=== PATIENT | male | born 1980 | race African-American/Black ===

== ENCOUNTER 2022-04-08 18:21 | Inpatient (IN) | payer OTHER ==
[2022-04-08] MEDS ORDERED: levETIRAcetam 500 MG/5 ML VIAL ONE (18:41)
[2022-04-08] MEDS ORDERED: Morphine 4 MG/ML VIAL ONE (18:41)
[2022-04-08] MEDS ORDERED: Boostrix 0.5 ML (Tdap) VIAL ONE (18:41)
[2022-04-08] MEDS ORDERED: Ketorolac Tromethamine 30 MG/ML VIAL ONE (18:41)
[2022-04-08 18:45] LABS: #Monocytes 0.4 thou/uL (0.11-0.59); #Neutrophils 4.3 thou/uL (1.40-6.50); %Basophils 0.1 % (0.0-1.0); %Eosinophils 0.4 % (0.0-10.0); %Lymphocytes 17.2 % (21.0-51.0); %Monocytes 6.2 % (0.0-10.0); %Neutrophils 76.1 % (42.0-75.0); Hemoglobin 14.8 g/dL (14.0-18.0); Mean Corpuscular HGB CONC 34.1 g/dL (32.0-36.0); Mean Corpuscular Volume 93.8 fL (78.0-98.0); Mean Platelet Volume 6.7 fL (7.4-10.4); Platelet Count 220 thou/uL (130-400); RBC Distribution Width 11.7 % (11.5-14.5); Red Blood Cell (RBC) Count 4.64 mill/uL (4.70-6.10); White Blood Cell (WBC) Count 5.6 thou/uL (4.8-10.8)
[2022-04-08] MEDS ORDERED: Ampicillin/Sulbactam 3 GM in Sodium Chloride 0.9% 100 ML IVPB SCH (19:00)
[2022-04-08 19:06] LABS: ALT (SGPT) 26 U/L (8-55); AST (SGOT) 22 U/L (5-34); Albumin 4.2 g/dL (3.5-5.0); Alkaline Phosphatase 54 U/L (40-110); Anion Gap 13 mmol/L (10-20); BUN (Urea Nitrogen) 11 mg/dL (8.9-20.6); Bilirubin, Total 1.5 mg/dL (0.2-1.2); Calc. Creatinine Clearance 0 mL/min (70-130); Carbon Dioxide 22 mmol/L (22-29); Chloride 107 mmol/L (98-107); Globulin 3.1 g/dL (2.4-3.5); Glucose 119 mg/dL (70-105); Potassium 4.1 mmol/L (3.5-5.1); Protein, Total 7.3 g/dL (6.0-8.3); Sodium 138 mmol/L (136-145)
[2022-04-08] MEDS ORDERED: Ondansetron PF 4 MG/2 ML Vial IVP PRN (19:56)
[2022-04-08] MEDS ORDERED: Morphine 2 MG/ML VIAL SLOW IVP PRN (19:56)
[2022-04-08] MEDS ORDERED: Promethazine HCl 25 MG/ML VIAL IM PRN (19:56)
[2022-04-08] MEDS ORDERED: Dexamethasone 4 mg/ml Vial SLOW IVP SCH (20:00)
[2022-04-08] MEDS ORDERED: levETIRAcetam in NS 2,000 MG in Premix Bag 1 BAG IVPB SCH (20:15)
[2022-04-08 20:42] LABS: Hemoglobin A1c 5.2 % (4.0-6.0)
[2022-04-08 20:59] LABS: SARS-CoV-2 NAA Rapid Test Not Detected (NotDetected)
[2022-04-08] MEDS ORDERED: levETIRAcetam in NS 500 MG in Premix Bag 1 BAG IVPB SCH (21:00)
[2022-04-09] MEDS: Sodium Chloride 0.9% 1,000 ML IV SCH ×3 (00:07→11:08)
[2022-04-09] MEDS: levETIRAcetam 500 MG/5 ML VIAL SLOW IVP SCH ×2 (00:08→08:00)
[2022-04-09] MEDS: Acetaminophen W/ Codeine 5 ML UDCUP PO SCH ×8 (00:08→23:32)
[2022-04-09] MEDS: Famotidine 40 MG/4 ML VIAL SLOW IVP SCH ×3 (00:16→21:46)
[2022-04-09] MEDS: Acetaminophen 650 MG/20.3 ML UDCUP PO SCH ×5 (00:17→21:46)
[2022-04-09] MEDS: Dexamethasone 4 mg/ml Vial SLOW IVP SCH ×4 (00:18→23:25)
[2022-04-09 00:45] VITALS: BMI 32.5
[2022-04-09 04:30] LABS: PTT 26.8 sec (22.9-36.1); Prothrombin Time 13.1 sec (12.0-14.7)
[2022-04-09] MEDS: Ampicillin/Sulbactam 3 GM in Sodium Chloride 0.9% 100 ML IVPB SCH ×4 (05:17→22:49)
[2022-04-09] MEDS ORDERED: fentaNYL Citrate/PF 100 MCG/2 ML SYRINGE ONE ×2 (16:22→19:32)
[2022-04-09] MEDS ORDERED: Midazolam HCl 2 mg/2 ml Vial ONE (16:22)
[2022-04-09] MEDS ORDERED: AFRIN NASAL MIST 15 ML BOT ONE (16:39)
[2022-04-09] MEDS ORDERED: Dexamethasone 4 mg/ml Vial ONE (16:46)
[2022-04-09] MEDS ORDERED: Clindamycin/D5W 900 mg/50 ml Premix Bag ONE (16:46)
[2022-04-09] MEDS ORDERED: Rocuronium Bromide 10 MG/ML (10ML VIAL) ONE (17:05)
[2022-04-09] MEDS ORDERED: Lidocaine 1% PF 5 ML VIAL ONE (17:05)
[2022-04-09] MEDS ORDERED: Ondansetron PF 4 MG/2 ML Vial ONE (17:05)
[2022-04-09] MEDS ORDERED: PHENYLEPHRINE-NS 100 MCG/ML 10 ML SYRINGE ONE (17:05)
[2022-04-09] MEDS ORDERED: PROPOFOL 200 MG/20 ML VIAL ONE (17:05)
[2022-04-09] MEDS ORDERED: Lidocaine 1% w/Epinephrine 1:100K 20 ML VIAL ONE (17:36)
[2022-04-09] MEDS ORDERED: Bacitracin Zinc Ointment 30 gm TUBE ONE (19:50)
[2022-04-09] MEDS ORDERED: Ondansetron HCl/PF 4 MG/2 ML Vial IVP PRN (20:16)
[2022-04-09] MEDS ORDERED: Promethazine HCl 25 MG/ML VIAL IVPB PRN (20:16)
[2022-04-09] MEDS ORDERED: Promethazine HCl 25 MG/ML VIAL IM PRN (20:16)
[2022-04-09] MEDS ORDERED: Labetalol HCl 100 MG/20 ML VIAL ONE (20:16)
[2022-04-09] MEDS ORDERED: Hydrocodone-Acetamin 15 ML UDCUP PO PRN (20:44)
[2022-04-09] MEDS ORDERED: levETIRAcetam in NS 500 MG in Premix Bag 1 BAG IVPB SCH (21:00)
[2022-04-09] MEDS: D5 0.9% NS w/ 20 mEq KCl 1,000 ML IV SCH (21:36)
[2022-04-09] MEDS: Chlorhexidine Gluconate 15 ML UDCUP SSP SCH (21:37)
[2022-04-09] MEDS: hydrALAZINE 20 MG/ML VIAL SLOW IVP PRN (21:46)
[2022-04-09] MEDS ORDERED: Ibuprofen 100 MG/5 ML UDCUP PO SCH (23:59)
[2022-04-10] MEDS: Clindamycin/D5W 600 MG in Premix Bag 1 BAG IVPB SCH ×2 (00:09→04:55)
[2022-04-10] MEDS: Acetaminophen W/ Codeine 5 ML UDCUP PO SCH (01:44)
[2022-04-10] MEDS: Acetaminophen 650 MG/20.3 ML UDCUP PO SCH ×3 (04:55→17:35)
[2022-04-10] MEDS: Ampicillin/Sulbactam 3 GM in Sodium Chloride 0.9% 100 ML IVPB SCH (04:55)
[2022-04-10] MEDS: Dexamethasone 4 mg/ml Vial SLOW IVP SCH ×3 (04:55→17:35)
[2022-04-10 05:54] LABS: #Lymphocytes 0.6 thou/uL (1.20-3.40); #Monocytes 0.7 thou/uL (0.11-0.59); #Neutrophils 10.3 thou/uL (1.40-6.50); %Eosinophils 0.1 % (0.0-10.0); %Lymphocytes 5.2 % (21.0-51.0); %Monocytes 5.7 % (0.0-10.0); Hemoglobin 15.4 g/dL (14.0-18.0); Mean Corpuscular HGB CONC 33.6 g/dL (32.0-36.0); Mean Corpuscular Hemoglobin 31.8 pg (27.0-31.0); Mean Corpuscular Volume 94.6 fL (78.0-98.0); Mean Platelet Volume 7.3 fL (7.4-10.4); Platelet Count 257 thou/uL (130-400); RBC Distribution Width 12.2 % (11.5-14.5); Red Blood Cell (RBC) Count 4.84 mill/uL (4.70-6.10); White Blood Cell (WBC) Count 11.5 thou/uL (4.8-10.8)
[2022-04-10 06:36] LABS: Anion Gap 14 mmol/L (10-20); BUN (Urea Nitrogen) 11 mg/dL (8.9-20.6); Calc. Creatinine Clearance 174 mL/min (70-130); Calcium 9.2 mg/dL (7.8-10.44); Carbon Dioxide 22 mmol/L (22-29); Chloride 106 mmol/L (98-107); Glucose 132 mg/dL (70-105); Magnesium 1.9 mg/dL (1.6-2.6); Phosphorus 2.3 mg/dL (2.3-4.7); Sodium 138 mmol/L (136-145)
[2022-04-10] MEDS: Clindamycin 150 MG CAP PO SCH ×2 (08:51→14:32)
[2022-04-10] MEDS: levETIRAcetam 500 MG TAB PO SCH ×3 (08:51→20:37)
[2022-04-10] MEDS: Famotidine 20 MG TAB PO SCH ×2 (08:51→20:27)
[2022-04-10] MEDS: Chlorhexidine Gluconate 15 ML UDCUP SSP SCH ×3 (08:51→20:27)
[2022-04-10] MEDS: Amlodipine 5 MG TAB PO SCH (08:51)
[2022-04-10] MEDS: D5 0.9% NS w/ 20 mEq KCl 1,000 ML IV SCH (08:52)
[2022-04-10] MEDS: levETIRAcetam 500 mg/5 ml Oral Solution PO SCH (20:47)
[2022-04-10] MEDS: hydrALAZINE 20 MG/ML VIAL SLOW IVP PRN (20:50)
[2022-04-11] MEDS: Acetaminophen 650 MG/20.3 ML UDCUP PO SCH ×3 (00:16→13:56)
[2022-04-11] MEDS: Clindamycin 150 MG CAP PO SCH ×4 (00:17→17:15)
[2022-04-11] MEDS: Dexamethasone 4 mg/ml Vial SLOW IVP SCH ×2 (00:20→06:04)
[2022-04-11] MEDS ORDERED: Senokot S 8.6-50 MG TAB PO SCH (09:00)
[2022-04-11] MEDS ORDERED: Polyethylene Glycol 3350 17 GM Packet PO SCH (09:00)
[2022-04-11] MEDS: levETIRAcetam 500 mg/5 ml Oral Solution PO SCH (09:43)
[2022-04-11] MEDS: Chlorhexidine Gluconate 15 ML UDCUP SSP SCH ×2 (09:43→15:13)
[2022-04-11] MEDS: Famotidine 20 MG TAB PO SCH (09:43)
[2022-04-11] MEDS: Amlodipine 5 MG TAB PO SCH (09:43)
[2022-04-11] MEDS ORDERED: Acetaminophen W/ Codeine 5 ML UDCUP PO PRN ×2 (12:08)
[2022-04-11 18:48] VITALS: BP 156/87; TEMP 97.8
== END 2022-04-11 18:55 | DRG 140 ==
LOC: ERS 18:21 → EEVIPCON 19:59 → CCU 19:59 → SURG A 04-09 15:33
PROVIDERS: ADMIT Surgery; ATTEND Surgery
PROC: 0NST04Z Reposition Right Mandible with Internal Fixation Device, Open Approach (ICD-10-PCS; principal; 2022-04-09)
PROC: 0NSV04Z Reposition Left Mandible with Internal Fixation Device, Open Approach (ICD-10-PCS; 2022-04-09)
PROC: 0CDXXZ1 Extraction of Lower Tooth, Multiple, External Approach (ICD-10-PCS; 2022-04-09)
PROC: 2W31X9Z Immobilization of Face using Wire (ICD-10-PCS; 2022-04-09)
PROC: 0HQ1XZZ Repair Face Skin, External Approach (ICD-10-PCS; 2022-04-09)
DX: S02.611B Fracture of condylar process of right mandible, initial encounter for open fracture (principal); S06.5X0A Traumatic subdural hemorrhage without loss of consciousness, initial encounter; Y09 Assault by unspecified means; R56.9 Unspecified convulsions; M54.9 Dorsalgia, unspecified; I10 Essential (primary) hypertension; S02.612B Fracture of condylar process of left mandible, initial encounter for open fracture; Y92.149 Unspecified place in prison as the place of occurrence of the external cause; Z20.822 Contact with and (suspected) exposure to COVID-19
CPT/HCPCS: 36415; 70450; 70486; 71045; 72125; 80048; 80053; 83036; 83735; 84100; 84146; 85025; 85610; 85730; 86850; 86900; 86901; 90471; 90715; 96365; 96375; C1713; C1788; G0390; J0295; J0360; J1100; J1885; J1953; J2250; J2270; J2405; J2704; J3480; J3490; J7050; U0002